=== PATIENT | male | born 1965 | race Caucasian/White ===

== ENCOUNTER 2019-03-01 11:50 | Emergency (ER) | payer SELFPAY ==
[2019-03-01] MEDS: IPRATROPIUM (NEB) 0.5 MG/2.5 ML AMP NEB (12:20)
[2019-03-01] MEDS: ALBUTEROL 0.5% (NEB) 2.5 MG/0.5 ML AMP NEB (12:20)
== END 2019-03-01 15:22 | disposition home or self-care (01) ==
LOC: E/R 11:50
DX: T54.2X1A Toxic effect of corrosive acids and acid-like substances, accidental (unintentional), initial encounter (principal); R05 Cough
CPT/HCPCS: 71045; 94644; 99283-25